=== PATIENT | male | born 1990 | race Two or more races ===

== ENCOUNTER 2018-07-18 01:18 | Emergency (ER) | payer OTHER ==
--- NOTE | 2018-07-18 01:25 | PDOC ---
History of Present Illness - General Chief Complaint: Headache Stated Complaint: HEADACHE Time Seen by Provider: 07/18/18 01:24 History Source: Patient Exam Limitations: No Limitations - History of Present Illness Initial Comments: 07/18/18 02:08 Pt presents to the ED complaining of a once month history of intermittent frontal headaches. History of frequent headaches in the past, but states that he was concerned today because his headaches have been more frequent and severe for the last month. Also complains of mild lightheadness when walking. Pain is moderate in severity, gradual onset, and localized to his forehead and behind his eyes. Denies photophobia and vomiting, although he does complain of mild nausea. Took advil at home this morning with relief, but symptoms recurred this evening. Past History - Past Medical History Allergies/Adverse Reactions: Allergies Allergy/AdvReac Type Severity Reaction Status Date / Time No Known Allergies Allergy Verified 12/25/11 15:57 Home Medications: Ambulatory Orders No Home Medications 0 dose .ROUTE UTDICT 12/25/11 COPD: No - Suicide/Smoking/Psychosocial Hx Smoking Status: No Smoking History: Never smoked Number of Cigarettes Smoked Daily: 0 Hx Alcohol Use: No Drug/Substance Use Hx: No Substance Use Type: None Review of Systems - Review of Systems Able to Perform ROS?: Yes Is the patient limited German proficient: No Constitutional: No: Symptoms Reported, See HPI, Chills, Diaphoresis, Fever, Loss of Appetite, Malaise, Night Sweats, Weakness, Weight Stable, Unintentional Wgt. Loss, Unexplained wgt Loss, Other HEENTM: No: Symptoms Reported, See HPI, Eye Pain, Blurred Vision, Tearing, Recent change in vision, Double Vision, Cataracts, Ear Pain, Ocular Prothesis, Ear Discharge, Nose Pain, Nose Congestion, Tinnitus, Nose Bleeding, Hearing Loss , Throat Pain, Throat Swelling, Mouth Pain, Dental Problems, Difficulty Swallowing, Mouth Swelling, Other Respiratory: No: Symptoms reported, See HPI, Cough, Orthopnea, Shortness of Breath, SOB with Exertion, SOB at Rest, Stridor, Wheezing, Productive cough, Hemoptysis, Other Cardiac (ROS): No: Symptoms Reported, See HPI, Chest Pain, Edema, Irregular Heart Rate, Lightheadedness, Palpitations, Syncope, Chest Tightness, Other ABD/GI: No: Symptoms Reported, See HPI, Abdominal Distended, Abd. Pain w/ defecation, Blood Streaked Bowels, Constipated, Diarrhea, Difficulty Swallowing , Nausea, Poor Appetite, Poor Fluid Intake, Rectal Bleeding, Vomiting, Indigestion, Abdominal cramping, Tarry Stools, Other : No: Symptoms Reported, See HPI, Burning, Dysuria, Discharge, Frequency, Flank Pain, Hematuria, Incontinence, Pain, Urgency, Testicular Mass, Testicular Swelling, Lesions, Testicular Pain, Other Neurological: Yes: Headache. No: Symptoms reported, See HPI, Numbness, Paresthesia, Pre-Existing Deficit, Seizure, Tingling, Tremors, Weakness, Unsteady Gait, Ataxia, Dizziness, Other *Physical Exam - Physical Exam Comments: 07/18/18 02:18 Gen: alert, NAD HEENT: normocephalic, atraumatic, EOMI CV: rrr no murmurs Pulm: CTA B/L abdomen: soft, non tender, non distended Ext: no edema, deformity or tenderness Neuro: alert and oriented x 3. CN grossly intact. 5/5 strength b/l upper and lower extremities. ambulatory in the ED with normal gait. Gastrointestinal/Abdominal: positive: Flat Neurologic: positive: Motor Strength 5/5 Medical Decision Making - Medical Decision Making 07/18/18 02:13 Pt presents to the ED complaining of a three weak history of gradual onset frontal headache that was somewhat worse today. Given the severity, gradual onset and persistence of his pain, subarachnoid is unlikely. Will treat with toradol and reassess. Pt is also mildly tachycardic. Will give IVF and reassess. *DC/Admit/Observation/Transfer Diagnosis at time of Disposition: Headache Qualifiers: Headache type: tension-type Headache chronicity pattern: acute headache Intractability: not intractable Qualified Code(s): G44.209 - Tension-type headache, unspecified, not intractable - Discharge Dispostion Disposition: HOME Condition at time of disposition: Good Decision to Admit order: No - Referrals Referrals: Nina Love MD [Primary Care Provider] - - Patient Instructions Printed Discharge Instructions: DI for Headache Additional Instructions: you came to the ED for headache, which improved after medication given here. Your headache is most likely a migraine or a tension headache which are not dangerous. However, if your pain becomes severe, or if its accompanied by passing out, confusion, multiple episodes of vomiting or seizures, you should return immediately to the ED. Call your primary care doctor on Thursday to make a follow up appointment. - Post Discharge Activity
[2018-07-18] MEDS ORDERED: SODIUM CHLORIDE 0.9% 500 ML INFUS.BAG IV ONE (01:34)
[2018-07-18] MEDS ORDERED: KETOROLAC TROMETHAMINE 30 MG/1 ML VIAL IVPUSH ONE (01:35)
[2018-07-18 01:41] VITALS: BP 121/85; TEMP 99.4; BMI 25.0
[2018-07-18] MEDS ORDERED: KETOROLAC TROMETHAMINE 30 MG/1 ML VIAL ONE (01:41)
[2018-07-18 02:15] VITALS: PULSE 92
== END 2018-07-18 02:38 | disposition home or self-care (01) ==
LOC: FER 01:18
PROC: 3E0333Z Introduction of Anti-inflammatory into Peripheral Vein, Percutaneous Approach (ICD-10-PCS; principal; 2018-07-18)
PROC: 3E0337Z Introduction of Electrolytic and Water Balance Substance into Peripheral Vein, Percutaneous Approach (ICD-10-PCS; 2018-07-18)
DX: G44.209 Tension-type headache, unspecified, not intractable (principal)
CPT/HCPCS: 99282-25